=== PATIENT | female | born 1965 | race Caucasian/White ===

== ENCOUNTER 2017-12-28 07:39 | Emergency (ER) | payer BC ==
--- NOTE | 2017-12-28 07:52 | PDOC ---
History of Present Illness - General Chief Complaint: Edema Stated Complaint: SWELLING OF THE HAND Time Seen by Provider: 12/28/17 07:41 History Source: Patient Exam Limitations: No Limitations - History of Present Illness Initial Comments: 12/28/17 07:52 52 year old F c/ hx of hypothyroidism p/w left 2nd finger digit and left shoulder erythema and induration. 5 days ago, accidentally kicked a wasp's nest. Got bit on left shoulder and left finger. Gradually became indurated and erythematous and itchy, but denies fevers. Today, pt noted that her finger was itchy and red and swollen. She became nervous and had a near syncopal event. No chest pain or SOB. Returned back to baseline. No fevers, chills. No pain on active or passive flexion or extension of digits. Past History - Past Medical History Allergies/Adverse Reactions: Allergies Allergy/AdvReac Type Severity Reaction Status Date / Time No Known Allergies Allergy Verified 12/28/17 07:55 Home Medications: Ambulatory Orders Cephalexin Monohydrate [Keflex -] 500 mg PO Q8H #21 capsule 12/28/17 Sulfamethoxazole/Trimethoprim [Bactrim Ds -] 1 tab PO BID #14 tablet 12/28/17 Review of Systems - Review of Systems Able to Perform ROS?: Yes Comments:: 12/28/17 08:09 GENERAL/CONSTITUTIONAL: [No fever or chills. No weakness. No weight change.] HEAD, EYES, EARS, NOSE AND THROAT: [No change in vision. No ear pain or discharge. No sore throat.] CARDIOVASCULAR: [No chest pain or shortness of breath.] RESPIRATORY: [No cough, wheezing, or hemoptysis.] GASTROINTESTINAL: [No nausea, vomiting, diarrhea or constipation. No rectal bleeding.] GENITOURINARY: [No dysuria, frequency, or change in urination.] MUSCULOSKELETAL: [No joint or muscle swelling or pain. No neck or back pain.] SKIN AND BREASTS: +erythema on LUE. NEUROLOGIC: [No headache, vertigo, loss of consciousness, or loss of sensation.] PSYCHIATRIC: [No depression or anxiety.] ENDOCRINE: [No increased thirst. No abnormal weight change.] HEMATOLOGIC/LYMPHATIC: [No anemia, easy bleeding, or history of blood clots.] ALLERGIC/IMMUNOLOGIC: [No hives or skin allergy. No latex allergy.] *Physical Exam - Physical Exam Comments: 12/28/17 08:10 GENERAL: Awake, alert, and fully oriented, in no acute distress HEAD: No signs of trauma EYES: EOMI, sclera anicteric, conjunctiva clear ENT: Auricles normal inspection, hearing grossly normal, nares patent, Moist mucosa NECK: Normal ROM, supple EXTREMITIES: Normal range of motion, no edema. No clubbing or cyanosis. No cords, erythema, or tenderness NEUROLOGICAL: Cranial nerves II through XII grossly intact. Normal speech, normal gait SKIN: Warm, Dry, normal turgor LUE: 2+ radial pulse. Sensation and strength intact throughout. Noted ~3x3 cm mildly indurated and erythematous proximal 2nd digit. Kanavel signs negative. No sausage digit. Able to actively and passively flex digit. Left shoulder with approx 4 x 4 cm erythema and induration. No fluctuance. Small sting correia noted on both sites. Heart Score/ECG Review #1 ECG reviewed & interpreted by me at: 08:15 12/28/17 08:13 NSR 68, no std/giovanny, normal axis, normal intervlas, no brugada, no HOCM, no WPW, QTC 442 msec Medical Decision Making - Medical Decision Making 12/28/17 08:04 Vital Signs Temp Pulse Resp BP Pulse Ox 98.3 F 71 18 122/83 100 12/28/17 07:40 12/28/17 07:40 12/28/17 07:40 12/28/17 07:40 12/28/17 07:40 Findings consistent with cellulitis. Not concerned for deep infections. Will prescribe bactrim and keflex. Return precautions given including severe finger pain, sausage digit, worsening rash despite antibiotics for the next 48 to 72 hours. I suspect the patient also had a vasovagal near syncope. Pt informs me she also has history of mitral valve proplapse. ECG is reassuring and normal. Will give her a copy of ECG and have her follow up with PCP. *DC/Admit/Observation/Transfer Diagnosis at time of Disposition: Vasovagal near syncope Cellulitis Qualifiers: Site of cellulitis: extremity Site of cellulitis of extremity: finger Laterality: left Qualified Code(s): L03.012 - Cellulitis of left finger - Discharge Dispostion Disposition: HOME Condition at time of disposition: Stable Decision to Admit order: No - Prescriptions Prescriptions: Cephalexin Monohydrate [Keflex -] 500 mg PO Q8H #21 capsule Sulfamethoxazole/Trimethoprim [Bactrim Ds -] 1 tab PO BID #14 tablet - Referrals - Patient Instructions Printed Discharge Instructions: DI for Cellulitis -- Adult Additional Instructions: Please take the antibiotics (cephalexin and bactrim) as prescribed for 7 days. Drink plenty of fluids and rest. You may take motrin and benadryl over the counter as needed. If your symptoms worsened after 48 to 72 hours, or you have severe uncontrollable pain in the finger, please return to the ER. - Post Discharge Activity
[2017-12-28] MEDS ORDERED: CEPHALEXIN MONOHYDRATE 500 MG CAPSULE (UD) PO ONE (08:07)
[2017-12-28] MEDS ORDERED: SULFAMETHOXAZOLE/TRIMETHOPRIM 800MG/160MG D.S. TABLET PO ONE (08:07)
[2017-12-28 08:08] VITALS: BP 122/83; PULSE 71; TEMP 98.3; BMI 21.7
[2017-12-28] MEDS ORDERED: CEPHALEXIN MONOHYDRATE 500 MG CAPSULE (UD) ONE (08:16)
[2017-12-28] MEDS ORDERED: SULFAMETHOXAZOLE/TRIMETHOPRIM 800MG/160MG D.S. TABLET ONE (08:16)
--- NOTE | 2017-12-29 10:33 | EKG ---
Test Reason : Blood Pressure : / mmHG Vent. Rate : 068 BPM Atrial Rate : 068 BPM P-R Int : 136 ms QRS Dur : 090 ms QT Int : 416 ms P-R-T Axes : 075 063 044 degrees QTc Int : 442 ms NORMAL SINUS RHYTHM NORMAL ECG NO PREVIOUS ECGS AVAILABLE Confirmed by SANDRITA SINGH MD ([id number]) on 12/29/2017 10:33:23 AM Referred By: JUAN HOWELL Confirmed By:SANDRITA SINGH MD
== END 2017-12-28 08:22 | disposition home or self-care (01) ==
LOC: FER 07:39
DX: R55 Syncope and collapse (principal); L03.012 Cellulitis of left finger
CPT/HCPCS: 93005; 99283-25